=== PATIENT | female | born 1930 | race Caucasian/White ===

== ENCOUNTER 2016-09-21 08:42 | Inpatient (IN) | payer MEDICARE, BC ==
[2016-09-21] VITALS (7 sets, daily range): BP systolic 128–155; BP diastolic 76–101; PULSE 78–95; RESP 16–20; TEMP 97.4–97.7; O2SAT 94–99
[~2016-09-21 08:42] MED LIST: ASPI81 PO; ATEN1TAB74 PO; CENTTAB9 PO; CLON.1 PO; MAXZ PO
--- NOTE | 2016-09-21 08:56 | PD ---
HPI Chief Complaint: pt not eating or drinking Time Seen by Provider: 08:47 Travel History International Travel<30 days: No Contact w/Intl Traveler<30days: No Traveled to known affect area: No History of Present Illness HPI Patient presents via [facility] from [facility] dementia unit. Reports that the patient has refused to eat or drink for 3 days. long term has concerns of a UTI. Past medical history of hypertension and hypokalemia rhabdomyolysis and dementia. Patient is noncommunicative. PFSH Past Medical History Arthritis: Yes (NECK & BACK) Blood Disorders: No Heart Rhythm Problems: Yes Cancer: No Cardiovascular Problems: Yes High Cholesterol: No Chemotherapy: No Chest Pain: No Congestive Heart Failure: No Cerebrovascular Accident: No Diabetes: No Diminished Hearing: No Endocrine: Yes ("HIGH SUGAR BUT NOT DIABETIC" (?)) Genitourinary: No Headaches: Yes Hypertension: Yes Immune Disorder: No Musculoskeletal: Yes Neurologic: Yes Psychiatric: No Reproductive: No Respiratory: No Myocardial Infarction: No Radiation Therapy: No Sleep Apnea: No Past Surgical History Abdominal Surgery: No Endocrine Surgery: No Eye Surgery: Yes (EARLY CATARACT SURGERY) Gynecologic Surgery: Yes (HYSTERECTOMY) Hysterectomy: Yes Thoracic Surgery: No Other Surgery: Yes (VASCULAR TO LEFT LEG) Social History Alcohol Use: No Tobacco Use: No Substance Use: No Allergies-Medications (Allergen,Severity, Reaction): Coded Allergies: Penicillin (Verified Allergy, Mild, 09/21/16) Uncoded Allergies: MOLD CULTURES (Allergy, Mild, 09/29/07) Reported Meds & Prescriptions Reported Meds & Active Scripts Active Reported Preservision Areds (Multiple Vitamins W/ Minerals) 1 Tab 1 Tab PO BID Gabapentin 300 Mg Cap 300 Mg PO TID Montelukast (Montelukast Sodium) 10 Mg Tab 10 Mg PO DAILY Diphenhydramine (Diphenhydramine HCl) 25 Mg Cap 25 Mg PO HS Multivitamin Adults (Multiple Vitamins W/ Minerals) 1 Tab 1 Tab PO DAILY Ferrous Sulfate 325 Mg Tab 325 Mg PO TID Calcium 500 +D (Calcium Carbonate-Cholecalciferol) 500-400 Mg-Unit Tab 1 Tab PO BID Aspirin 81 Mg Chew 81 Mg CHEW DAILY Fluticasone Nasal [place] 50 Mcg/Act Naspr 50 Mcg EACH NARE DAILY 50 mcg/spray Hydroxychloroquine (Hydroxychloroquine Sulfate) 200 Mg Tab 200 Mg PO DAILY Takw with food Clonidine (Clonidine HCl) 0.1 Mg Tab 0.1 Mg PO BID K-Tab (Potassium Chloride) 20 Meq Tab 20 Meq PO BID Donepezil 5 Mg Tab 5 Mg PO HS Lisinopril 40 Mg Tab 40 Mg PO DAILY Furosemide 40 Mg Tab 40 Mg PO BID Review of Systems ROS Limitations: Poor Historian General / Constitutional: No: Fever Eyes: No: Visual changes HENT: No: Headaches Cardiovascular: No: Chest Pain or Discomfort Respiratory: No: Shortness of Breath Gastrointestinal: No: Abdominal Pain Genitourinary: No: Dysuria Musculoskeletal: No: Pain Skin: No Rash Neurologic: No: Weakness Psychiatric: No: Depression Endocrine: No: Polydipsia Hematologic/Lymphatic: No: Easy Bruising Physical Exam Narrative GENERAL: Poorly nourished noncommunicative. SKIN: Warm and dry. HEAD: Normocephalic. Temporal wasting noted, oral mucosa appears moist EYES: No scleral icterus. No injection or drainage. NECK: Supple, trachea midline. No JVD or lymphadenopathy. CARDIOVASCULAR: Regular rate and rhythm without murmurs, gallops, or rubs. RESPIRATORY: Breath sounds equal bilaterally. No accessory muscle use. GASTROINTESTINAL: Abdomen soft, patient moans with palpation, nondistended. MUSCULOSKELETAL: No cyanosis, or edema. BACK: Nontender without obvious deformity. No CVA tenderness. Data Data Last Documented VS Vital Signs Date Time Temp Pulse Resp B/P Pulse Ox O2 Delivery O2 Flow Rate FiO2 09/21/16 09:04 95 16 09/21/16 09:01 97.7 155/88 98 Orders Complete Blood Count With Diff (09/21/16 08:48) Basic Metabolic Panel (Bmp) (09/21/16 08:48) Urinalysis - C+S If Indicated (09/21/16 08:48) Sodium Chlorid 0.9% 500 Ml Inj (Ns 500 M (09/21/16 09:00) Ondansetron Inj (Zofran Inj) (09/21/16 09:15) Iv Access Insert/Monitor (09/21/16 09:14) Chest, Single Ap (09/21/16 ) Admit To Inpatient (09/21/16 ) Vital Signs (Adult) Q4H (09/21/16 10:28) Activity Oob With Assistance (09/21/16 10:28) Diet Regular Basic (09/21/16 Lunch) Sodium Chlor 0.9% 1000 Ml Inj (Ns 1000 M (09/21/16 10:28) Sodium Chloride 0.9% Flush (Ns Flush) (09/21/16 10:30) Sodium Chloride 0.9% Flush (Ns Flush) (09/21/16 21:00) Acetaminophen (Tylenol) (09/21/16 10:30) Ondansetron Inj (Zofran Inj) (09/21/16 10:30) Docusate Sodium (Colace) (09/21/16 10:30) Magnesium Hydroxide Liq (Milk Of Magnesi (09/21/16 10:30) Basic Metabolic Panel (Bmp) (09/22/16 06:00) Complete Blood Count With Diff (09/22/16 06:00) Pt Request For Service (09/21/16 10:28) St Request For Service (09/21/16 10:28) Case Management Consult (09/21/16 10:28) Scd Bilateral/Knee High ROSEY.BID (09/21/16 10:28) Naloxone Inj (Narcan Inj) (09/21/16 10:30) Inpatient Certification (09/21/16 ) Labs Laboratory Tests Test 09/21/16 09/21/16 08:46 09:07 Urine Collection Type CATH Urine Color YELLOW Urine Turbidity SLIGHT Urine pH 5.5 Urine Specific [place] 1.016 Urine Protein 30 mg/dL Urine Glucose (UA) NEG mg/dL Urine Ketones 15 mg/dL Urine Occult Blood NEG Urine Nitrite NEG Urine Bilirubin NEG Urine Leukocyte Esterase NEG Urine Squamous Epithelial 0-5 /hpf Cells Urine Transitional Epithelial 0-5 /hpf Cells Urine Amorphous Sediment MOD Urine Hyaline Casts 0-2 /lpf Microscopic Urinalysis Comment CATH-CULT NOT IND Urine Collection Time 0845 White Blood Count 19.2 TH/MM3 Red Blood Count 4.70 MIL/MM3 Hemoglobin 14.9 GM/DL Hematocrit 43.9 % Mean Corpuscular Volume 93.4 FL Mean Corpuscular Hemoglobin 31.6 PG Mean Corpuscular Hemoglobin 33.8 % Concent Red Cell Distribution Width 12.8 % Platelet Count 325 TH/MM3 Mean Platelet Volume 9.1 FL Neutrophils (%) (Auto) % Lymphocytes (%) (Auto) % Monocytes (%) (Auto) % Eosinophils (%) (Auto) % Basophils (%) (Auto) % Neutrophils # (Auto) TH/MM3 Lymphocytes # (Auto) TH/MM3 Monocytes # (Auto) TH/MM3 Eosinophils # (Auto) TH/MM3 Basophils # (Auto) TH/MM3 CBC Comment AUTO DIFF Differential Total Cells 100 Counted Neutrophils % (Manual) 89 % Band Neutrophils % 4 % Lymphocytes % 4 % Monocytes % 3 % Neutrophils # (Manual) 17.9 TH/MM3 Differential Comment FINAL DIFF MANUAL Platelet Estimate NORMAL Platelet Morphology Comment NORMAL Red Cell Morphology Comment NORMAL Sodium Level 146 MEQ/L Potassium Level 5.1 MEQ/L Chloride Level 108 MEQ/L Carbon Dioxide Level 23.4 MEQ/L Anion Gap 15 MEQ/L Blood Urea Nitrogen 58 MG/DL Creatinine 2.80 MG/DL Estimat Glomerular Filtration 16 ML/MIN Rate Random Glucose 118 MG/DL Calcium Level 9.4 MG/DL MDM Medical Decision Making Medical Screen Exam Complete: Yes Emergency Medical Condition: Yes Differential Diagnosis Failure to thrive, progressive dementia, UTI Narrative Course Assessment and plan discussed with her healthcare surrogate. She is aware that the patient has refused to eat or drink for 3 days. She is amiable to admission for rehydration and observation of acute renal failure however she is aware that we will keep her DNR and will not be forcing her to eat. CBC revealed a leukocytosis, BMP revealed acute renal failure. Last 72 hours Impressions Chest X-Ray 09/21/16 0000 Signed Impressions: Service Date/Time: Wednesday, September 21, 2016 09:57 - CONCLUSION: No acute disease. Cardiomegaly. Yariel West MD Physician Communication Physician Communication Spoke with Dr Carson who is in agreement will admit. Diagnosis Primary Impression: ARF (acute renal failure) Qualified Code: N17.9 - Acute renal failure, unspecified acute renal failure type Additional Impression: Leucocytosis Qualified Code: D72.829 - Leukocytosis, unspecified type Francis Honeycutt MD Sep 21, 2016 08:56
[2016-09-21] MEDS ORDERED: SODIUM CHLORID 0.9% 500 ML INJ 500 ML IV ONE (09:00)
[2016-09-21 09:05] LABS: BLOOD, URINE NEG (NEG); GLUCOSE,URINE NEG (NEG); KETONE, URINE 15 mg/dL (NEG); NITRITE,URINE NEG (NEG); PH, URINE 5.5 (5.0-8.5)
[2016-09-21 09:06] LABS: METHOD OF COLLECTION CATH; URINE COLOR YELLOW (YELLW/STRAW)
[2016-09-21 09:10] LABS: COMMENT (UR) CATH-CULT NOT IND; COMMENT2 (UR) MUCOUS PRESENT; CULTURE IF INDICATED CATH CULTURE NOT IND; HYALINE CAST, URINE 0-2 /lpf (RARE); SQUAMOUS EPITHELIAL CELL URINE 0-5 /hpf (0-5); TRANSITIONAL EPI CELLS, URINE 0-5 /hpf
[2016-09-21] MEDS ORDERED: ONDANSETRON HCL 4 MG/2 ML VIAL IV PUSH ONE (09:15)
[2016-09-21 09:20] LABS: HEMATOCRIT 43.9 % (35.0-46.0); MEAN CELL VOLUME 93.4 FL (80.0-100.0); MEAN CORPUSCULAR HEMOGLOBIN 31.6 PG (27.0-34.0); MEAN CORPUSCULAR HGB CONC 33.8 % (32.0-36.0); PLATELET COUNT 325 TH/MM3 (150-450); RED CELL DISTRIBUTION WIDTH 12.8 % (11.6-17.2); WHITE BLOOD COUNT 19.2 TH/MM3 (4.0-11.0)
[2016-09-21 09:28] LABS: HEMO FLAGS AUTO DIFF
[2016-09-21] MEDS ORDERED: DONE5TAB7 PO (09:37)
[2016-09-21] MEDS ORDERED: CALC1TAB12 PO (09:37)
[2016-09-21] MEDS ORDERED: MULT1TAB84 PO (09:37)
[2016-09-21] MEDS ORDERED: DIPH25CA PO (09:37)
[2016-09-21] MEDS ORDERED: HYDR200T3 PO (09:37)
[2016-09-21] MEDS ORDERED: GABA300C5 PO (09:37)
[2016-09-21] MEDS ORDERED: MONT10TA4 PO (09:37)
[2016-09-21] MEDS ORDERED: FURO40TA PO (09:37)
[2016-09-21] MEDS ORDERED: POTA1TAB4 PO (09:37)
[2016-09-21] MEDS ORDERED: FERR325T PO (09:37)
[2016-09-21] MEDS ORDERED: LISI40TA PO (09:37)
[2016-09-21] MEDS ORDERED: CLON0.1T PO (09:37)
[2016-09-21] MEDS ORDERED: OCUVTAB4 PO (09:37)
[2016-09-21] MEDS ORDERED: ASPI81CH CHEW (09:37)
[2016-09-21] MEDS ORDERED: FLUT50SP EACH NARE (09:37)
[2016-09-21 09:46] LABS: BANDS 4 % (0-6); NEUTROPHIL # MANUAL DIFF 17.9 TH/MM3 (1.8-7.7); PLATELET ESTIMATE SMEAR NORMAL (NORMAL); PLATELET MORPHOLOGY NORMAL (NORMAL); POLYS (SEG NEUTROPHILS) 89 % (16-70); SCAN/DIFF FINAL DIFF MANUAL; WBC DIFF SAMPLE 100
[2016-09-21 09:50] LABS: BICARBONATE 23.4 MEQ/L (21.0-32.0)
[2016-09-21 09:57] LABS: POTASSIUM 5.1 MEQ/L (3.5-5.1)
--- NOTE | 2016-09-21 10:05 | RADHPO ---
EXAM DATE/TIME: 09/21/2016 09:57 [place] COMPARISON: No previous studies available for comparison. INDICATIONS : Chest pain. MEDICAL HISTORY : None. SURGICAL HISTORY : None. ENCOUNTER: Initial ACUITY: 1 day PAIN SCORE: Non-responsive. LOCATION: Bilateral chest FINDINGS: A single view of the chest demonstrates the lungs to be symmetrically aerated without evidence of mas s, infiltrate or effusion. Cardiomegaly. The cardiomediastinal contours are unremarkable. Osseous st ructures are intact. CONCLUSION: No acute disease. Cardiomegaly. Yariel West MD on September 21, 2016 at 10:03 Board Certified Radiologist. This report was verified electronically.
[2016-09-21] MEDS ORDERED: SODIUM CHLORIDE 0.9% FLUSH 5 ML FLUSH FLUSH PRN (10:30)
[2016-09-21] MEDS ORDERED: ACETAMINOPHEN 325 MG TAB PO PRN ×2 (10:30→10:45)
[2016-09-21] MEDS ORDERED: ONDANSETRON HCL 4 MG/2 ML VIAL IVP PRN (10:30)
[2016-09-21] MEDS ORDERED: MAGNESIUM HYDROXIDE SUSP 30 ML CUP PO PRN (10:30)
[2016-09-21] MEDS ORDERED: NALOXONE HCL 0.4 MG/ML AMP IV PRN (10:30)
[2016-09-21] MEDS: SODIUM CHLOR 0.9% 1000 ML INJ 1,000 ML IV SCH ×2 (10:45→20:19)
[2016-09-21] MEDS ORDERED: SODIUM CHLORIDE 0.9% FLUSH 5 ML FLUSH IVF PRN (10:45)
[2016-09-21] MEDS: DOCUSATE SODIUM 100 MG CAP PO SCH ×2 (10:45→20:20)
--- NOTE | 2016-09-21 11:50 | HHI.HP ---
[facility] Primary Care Physician Unknown Admission Diagnosis acute renal failure, leukocytosis Diagnoses: (1) ARF (acute renal failure) (2) Leucocytosis (3) Dementia (4) Moderate malnutrition (5) FTT (failure to thrive) in adult Travel History International Travel<30 Days: No Contact w/Intl Traveler <30 Da: No Traveled to Known Affected Are: No History of Present Illness This is an 86-year-old female with past medical history of end-stage dementia and hypertension who was brought in from a local nursing facility dementia unit for not eating or drinking anything for 3 days. They were concerned that she might have a UTI at the retirement. The patient has dementia and is able to tell me only her name therefore history is limited. However the patient denies pain, difficulty swallowing, fever, chills. She states she is comfortable. Further review of systems is not obtainable/ reliable due to her dementia. The emergency department she was found to be in acute renal failure. She apparently is a DO NOT RESUSCITATE. Her health care surrogate was contacted by the ER physician and agreed with admission for IV fluid hydration but does not want aggressive measures apart from that. Past Family Social History Past Medical History End-stage dementia Hypertension SLE History pulmonary nodule Reported Medications Allergies Coded Allergies Type Severity Reaction Last Updated Verified Penicillin Allergy Mild 09/21/16 Yes Uncoded Allergies Type Severity Reaction Last Updated Verified MOLD CULTURES Allergy Mild 09/29/07 Active Scripts Medications Dose Route/Sig Days Date Category Dose Instructions Preservision Areds (Multiple Vitamins W/ Minerals) 1 Tab 1 Tab PO BID 09/21/16 Reported Gabapentin 300 Mg Cap 300 Mg PO TID 09/21/16 Reported Montelukast (Montelukast Sodium) 10 Mg Tab 10 Mg PO DAILY 09/21/16 Reported Diphenhydramine (Diphenhydramine HCl) 25 Mg Cap 25 Mg PO HS 09/21/16 Reported Multivitamin Adults (Multiple Vitamins W/ Minerals) 1 Tab 1 Tab PO DAILY 09/21/16 Reported Ferrous Sulfate 325 Mg Tab 325 Mg PO TID 09/21/16 Reported Calcium 500 +D (Calcium Carbonate-Cholecalciferol) 500-400 Mg-Unit Tab 1 Tab PO BID 09/21/16 Reported Aspirin 81 Mg Chew 81 Mg CHEW DAILY 09/21/16 Reported Fluticasone Nasal [place] 50 Mcg/Act Naspr 50 Mcg EACH NARE DAILY 09/21/16 Reported 50 mcg/spray Hydroxychloroquine (Hydroxychloroquine Sulfate) 200 Mg Tab 200 Mg PO DAILY 09/21/16 Reported Takw with food Clonidine (Clonidine HCl) 0.1 Mg Tab 0.1 Mg PO BID 09/21/16 Reported K-Tab (Potassium Chloride) 20 Meq Tab 20 Meq PO BID 09/21/16 Reported Donepezil 5 Mg Tab 5 Mg PO HS 09/21/16 Reported Lisinopril 40 Mg Tab 40 Mg PO DAILY 09/21/16 Reported Furosemide 40 Mg Tab 40 Mg PO BID 09/21/16 Reported Allergies: Coded Allergies: Penicillin (Verified Allergy, Mild, 09/21/16) Uncoded Allergies: MOLD CULTURES (Allergy, Mild, 09/29/07) Family History Not obtainable at this time Social History Not obtainable at this time Physical Exam Vital Signs Vital Signs Date Time Temp Pulse Resp B/P Pulse Ox O2 Delivery O2 Flow Rate FiO2 09/21/16 10:50 91 18 138/95 95 Room Air 09/21/16 09:04 95 16 09/21/16 09:01 97.7 95 16 155/88 98 Physical Exam GENERAL: Well-nourished, well-developed but severely demented elderly female SKIN: Warm and dry. HEAD: Normocephalic. EYES: No scleral icterus. No injection or drainage. Oropharynx: She has extremely dry mucous membranes. NECK: Supple, trachea midline. No JVD or lymphadenopathy. CARDIOVASCULAR: Regular rate and rhythm without murmurs, gallops, or rubs. RESPIRATORY: Breath sounds equal bilaterally. No accessory muscle use. GASTROINTESTINAL: Abdomen soft, non-tender, nondistended. EXTREMITIES: No cyanosis, or edema. NEUROLOGICAL: Awake, alert, and oriented to self only. Follows commands and moves all 4 extremities. Laboratory Laboratory Tests Test 09/21/16 09/21/16 08:46 09:07 Urine Collection Type CATH Urine Color YELLOW Urine Turbidity SLIGHT Urine pH 5.5 Urine Specific [place] 1.016 Urine Protein 30 Urine Glucose (UA) NEG Urine Ketones 15 Urine Occult Blood NEG Urine Nitrite NEG Urine Bilirubin NEG Urine Leukocyte Esterase NEG Urine Squamous Epithelial 0-5 Cells Urine Transitional Epithelial 0-5 Cells Urine Amorphous Sediment MOD Urine Hyaline Casts 0-2 Microscopic Urinalysis Comment CATH-CULT NOT IND Urine Collection Time 0845 White Blood Count 19.2 Red Blood Count 4.70 Hemoglobin 14.9 Hematocrit 43.9 Mean Corpuscular Volume 93.4 Mean Corpuscular Hemoglobin 31.6 Mean Corpuscular Hemoglobin 33.8 Concent Red Cell Distribution Width 12.8 Platelet Count 325 Mean Platelet Volume 9.1 Neutrophils (%) (Auto) Lymphocytes (%) (Auto) Monocytes (%) (Auto) Eosinophils (%) (Auto) Basophils (%) (Auto) Neutrophils # (Auto) Lymphocytes # (Auto) Monocytes # (Auto) Eosinophils # (Auto) Basophils # (Auto) CBC Comment AUTO DIFF Differential Total Cells 100 Counted Neutrophils % (Manual) 89 Band Neutrophils % 4 Lymphocytes % 4 Monocytes % 3 Neutrophils # (Manual) 17.9 Differential Comment FINAL DIFF MANUAL Platelet Estimate NORMAL Platelet Morphology Comment NORMAL Red Cell Morphology Comment NORMAL Sodium Level 146 Potassium Level 5.1 Chloride Level 108 Carbon Dioxide Level 23.4 Anion Gap 15 Blood Urea Nitrogen 58 Creatinine 2.80 Estimat Glomerular Filtration 16 Rate Random Glucose 118 Calcium Level 9.4 Result Diagram: 09/21/16 0907 09/21/16 0907 Imaging Last Impressions Chest X-Ray 09/21/16 0000 Signed Impressions: Service Date/Time: Wednesday, September 21, 2016 09:57 - CONCLUSION: No acute disease. Cardiomegaly. Yariel West MD Assessment and Plan Assessment and Plan -Acute renal failure due to dehydration/no by mouth intake. This is likely due to her end-stage dementia. She has no UTI, fever or infiltrate on chest x-ray. She does have a leukocytosis which is likely in part due to hemoconcentration. We will admit her and treat with IV fluid rehydration. She is a DO NOT RESUSCITATE. Hopefully her intake will improve when she gets more rehydrated. If not then hospice will be a reasonable option for her. -Hypertension - will hold the lisinopril secondary to the acute renal failure and place her on Procardia instead. Continue her home clonidine. -End-stage dementia - will check a speech swallow evaluation. Continue Aricept. -Leukocytosis. We'll repeat CBC in the morning. No evidence of underlying infection at this time. -SLE - continue Plaquenil. -Moderate malnutrition. Add ensure. Check ST swallow evaluation. -DVT prophylaxis with SCDs. Problem Qualifiers (1) ARF (acute renal failure): Qualified Code: N17.9 - Acute renal failure, unspecified acute renal failure type (2) Leucocytosis: Qualified Code: D72.829 - Leukocytosis, unspecified type Ami Carson MD Sep 21, 2016 11:50
[2016-09-21] MEDS ORDERED: cloNIDine HCL 0.1 MG TAB PO PRN (12:00)
[2016-09-21] MEDS: SODIUM CHLORIDE 0.9% FLUSH 5 ML FLUSH FLUSH SCH (20:19)
[2016-09-21] MEDS: cloNIDine HCL 0.1 MG TAB PO SCH (20:20)
[2016-09-21] MEDS: DONEPEZIL HCL 5 MG TAB PO SCH (20:20)
[2016-09-21] MEDS: NIFEdipine 60 MG SUSTAINED RELEASE TAB PO SCH (20:20)
[2016-09-21] MEDS ORDERED: SODIUM CHLORIDE 0.9% FLUSH 5 ML FLUSH IVF SCH (21:00)
[2016-09-22] VITALS (8 sets, daily range): BP systolic 80–131; BP diastolic 52–73; PULSE 78–91; RESP 16–22; TEMP 96.1–97.7; O2SAT 92–97
[2016-09-22 06:28] LABS: AUTOMATED NEUTROPHIL # 8.9 TH/MM3 (1.8-7.7); BASOPHIL % 0.3 % (0.0-2.0); EOSINOPHIL % 0.1 % (0.0-4.0); HEMATOCRIT 35.2 % (35.0-46.0); HEMO FLAGS DIFF FINAL; LYMPH % 10.7 % (9.0-44.0); LYMPHOCYTE # 1.1 TH/MM3 (1.0-4.8); MEAN CELL VOLUME 93.8 FL (80.0-100.0); MEAN CORPUSCULAR HEMOGLOBIN 30.8 PG (27.0-34.0); MEAN CORPUSCULAR HGB CONC 32.8 % (32.0-36.0); MONO % 6.9 % (0.0-8.0); PLATELET COUNT 262 TH/MM3 (150-450); RED BLOOD COUNT 3.75 MIL/MM3 (4.00-5.30); RED CELL DISTRIBUTION WIDTH 13.4 % (11.6-17.2); WHITE BLOOD COUNT 10.7 TH/MM3 (4.0-11.0)
[2016-09-22] MEDS: SODIUM CHLOR 0.9% 1000 ML INJ 1,000 ML IV SCH (06:35)
[2016-09-22 06:53] LABS: BICARBONATE 23.1 MEQ/L (21.0-32.0)
--- NOTE | 2016-09-22 07:35 | HHI.PR ---
Subjective Remarks Patient seen and examined today with Dr. Carson. Patient is awake lying in bed. She knows that she is in the hospital, however she thinks she is in [facility]. Laboratory studies are improving with IV hydration. Objective Vitals Vital Signs Date Time Temp Pulse Resp B/P Pulse Ox O2 Delivery O2 Flow Rate FiO2 09/22/16 04:00 97.7 85 16 131/70 94 09/22/16 00:00 97.2 79 20 89/56 92 09/21/16 20:00 97.6 85 20 149/101 95 09/21/16 19:29 99 21 09/21/16 16:00 97.4 81 18 128/76 96 09/21/16 13:49 97 21 09/21/16 13:03 97.7 78 17 132/84 94 09/21/16 10:50 91 18 138/95 95 Room Air 09/21/16 09:04 95 16 09/21/16 09:01 97.7 95 16 155/88 98 I/O 09/21/16 09/21/16 09/21/16 09/22/16 09/22/16 09/22/16 07:00 15:00 23:00 07:00 15:00 23:00 Intake Total 600 ml 1207 ml 788 ml Output Total 30 ml Balance 570 ml 1207 ml 788 ml Intake Oral 30 ml IV Total 600 ml 1177 ml 788 ml Output Urine Total 30 ml Bladder Scan Volume Amount 431 ml # Voids 0 # Bowel Movements 0 Result Diagram: 09/22/16 0510 09/22/16 0510 Objective Remarks GENERAL: Well-developed, well-nourished, in no acute distress. alert and orientated to person only HEENT: Head is normocephalic without any lesions or masses noted. Facial features are symmetric. Eyes: Extraocular muscles are intact. Conjunctivae were clear. NECK: Supple without any masses. Trachea midline no deviation. No JVD, CARDIAC: Regular rhythm, regular rate. S1/S2 are heard. 3/6 blowing ejection murmur, no gallops or rubs. LUNGS: Clear to auscultation bilaterally. No wheeze, rhonchi or rales. No use of accessory muscles on inspiration or expiration. ABDOMEN: Soft, nontender. Nondistended. Bowel sounds heard in all 4 quadrants. No organomegaly or masses. Negative rebound, negative guarding EXTREMITIES: No edema, pulses are equal bilaterally. No cyanosis or clubbing NEUROLOGY: Mood and affect appear appropriate. Cranial nerves II through XII grossly intact. Moving all extremities, speech is clear Urinary Catheter: Yes [place] insert reason: Measure Accurate Output Vascular Central Line Catheter: No A/P Assessment and Plan -Acute renal failure due to dehydration/no by mouth intake, improving with IV hydration. This is likely due to her end-stage dementia. She has no UTI, fever or infiltrate on chest x-ray. She does have a leukocytosis which resolved after hydration. Continue IV fluid rehydration. She is a DO NOT RESUSCITATE. Hopefully her intake will improve when she gets more rehydrated. If not then hospice will be a reasonable option for her. -Hypertension - will hold the lisinopril secondary to the acute renal failure and place her on Procardia instead. Continue her home clonidine. -End-stage dementia -awaiting speech swallow evaluation. Continue Aricept. -Leukocytosis. Resolved after hydration. No evidence of underlying infection at this time. -Hypernatremia. Patient has received almost 3 L of normal saline with worsening. Will change IV fluids to one half normal saline, continue monitor sodium level -Urinary retention. Patient not urinating at this time. Bladder scan indicates 460 mL's. Will insert [place] catheter for possible obstruction to monitor accurate input and output -SLE. Continue Plaquenil. -Moderate malnutrition. Continue ensure. Awaiting ST swallow evaluation. -DVT prophylaxis with SCDs. Written by Marcell Mtz PA-C, acting as scribe for Dr. Carson on 09/22/16 at 1135. The documentation accurately reflects the work and decisions performed face-to- face by Dr. Carson on 09/22/16 at 1135. Discharge Planning Discharge planning 2448 hours depending on patient's clinical response. Possible need for hospice or rehabilitation placement Marcell Mtz Sep 22, 2016 07:34
[2016-09-22] MEDS: 1/2 NS + KCL 20 MEQ INJ 1,000 ML IV SCH ×2 (09:47→21:32)
[2016-09-22] MEDS: SODIUM CHLORIDE 0.9% FLUSH 5 ML FLUSH FLUSH SCH ×2 (09:48→21:27)
[2016-09-22] MEDS: HYDROXYCHLOROQUINE SULFATE 200 MG TAB PO SCH (09:48)
[2016-09-22] MEDS: DOCUSATE SODIUM 100 MG CAP PO SCH ×2 (09:48→21:27)
[2016-09-22] MEDS: cloNIDine HCL 0.1 MG TAB PO SCH ×2 (09:48→21:27)
[2016-09-22] MEDS: NIFEdipine 60 MG SUSTAINED RELEASE TAB PO SCH ×2 (09:49→21:27)
[2016-09-22] MEDS: ASPIRIN 81 MG CHEW TAB CHEW SCH (09:49)
[2016-09-22] MEDS: MULTIVITAMINS/MINERALS THERAPEUTIC TAB PO SCH (09:49)
[2016-09-22] MEDS: DONEPEZIL HCL 5 MG TAB PO SCH (21:27)
[2016-09-23] VITALS: BP 90/48; PULSE 80; RESP 16; TEMP 98; O2SAT 92
[2016-09-23 04:00] VITALS: BP 104/56; PULSE 80; RESP 16; TEMP 96.4; O2SAT 97
[2016-09-23 06:46] LABS: AUTOMATED NEUTROPHIL # 6.6 TH/MM3 (1.8-7.7); BASOPHIL % 0.2 % (0.0-2.0); EOSINOPHIL # 0.2 TH/MM3 (0-0.4); EOSINOPHIL % 1.8 % (0.0-4.0); HEMATOCRIT 32.2 % (35.0-46.0); HEMO FLAGS DIFF FINAL; LYMPH % 14.4 % (9.0-44.0); LYMPHOCYTE # 1.2 TH/MM3 (1.0-4.8); MEAN CELL VOLUME 93.2 FL (80.0-100.0); MEAN CORPUSCULAR HEMOGLOBIN 31.3 PG (27.0-34.0); MEAN CORPUSCULAR HGB CONC 33.6 % (32.0-36.0); MONO % 6.9 % (0.0-8.0); NEUT % 76.7 % (16.0-70.0); PLATELET COUNT 245 TH/MM3 (150-450); RED BLOOD COUNT 3.46 MIL/MM3 (4.00-5.30); WHITE BLOOD COUNT 8.6 TH/MM3 (4.0-11.0)
[2016-09-23 07:19] LABS: BICARBONATE 21.3 MEQ/L (21.0-32.0); MAGNESIUM 2.3 MG/DL (1.5-2.5)
[2016-09-23] MEDS: MULTIVITAMINS/MINERALS THERAPEUTIC TAB PO SCH (07:47)
[2016-09-23] MEDS: DOCUSATE SODIUM 100 MG CAP PO SCH (07:47)
[2016-09-23] MEDS: HYDROXYCHLOROQUINE SULFATE 200 MG TAB PO SCH (07:47)
[2016-09-23] MEDS: NIFEdipine 60 MG SUSTAINED RELEASE TAB PO SCH (07:47)
[2016-09-23] MEDS: cloNIDine HCL 0.1 MG TAB PO SCH (07:47)
[2016-09-23] MEDS: ASPIRIN 81 MG CHEW TAB CHEW SCH (07:47)
[2016-09-23] MEDS: 1/2 NS + KCL 20 MEQ INJ 1,000 ML IV SCH (07:48)
[2016-09-23] MEDS: SODIUM CHLORIDE 0.9% FLUSH 5 ML FLUSH FLUSH SCH (07:48)
[2016-09-23 08:09] VITALS: BP 140/70; PULSE 79; RESP 18; TEMP 97; O2SAT 94
--- NOTE | 2016-09-23 12:12 | HHI.PR ---
Subjective Remarks Renal function has improved and the patient is alert and awake, however the patient is still not eating despite prompting her by the CORRECTIONAL COUNSELOR. Patient denies pain. Objective Vitals Vital Signs Date Time Temp Pulse Resp B/P Pulse Ox O2 Delivery O2 Flow Rate FiO2 09/23/16 08:09 97.0 79 18 140/70 94 09/23/16 04:00 96.4 80 16 104/56 97 09/23/16 00:00 98.0 80 16 90/48 92 09/22/16 19:40 96.5 82 22 115/63 92 09/22/16 19:16 95 09/22/16 16:20 97.6 91 18 80/52 97 09/22/16 12:41 96.7 78 17 108/61 95 I/O 09/22/16 09/22/16 09/22/16 09/23/16 09/23/16 09/23/16 07:00 15:00 23:00 07:00 15:00 23:00 Intake Total 788 ml 300 ml 400 ml 1000 ml Output Total 350 ml Balance 788 ml 300 ml 50 ml 1000 ml Intake Oral 300 ml 400 ml IV Total 788 ml 1000 ml Output Urine Total 350 ml Bladder Scan Volume Amount 431 ml # Bowel Movements 0 Result Diagram: 09/23/16 0505 09/23/16 0505 Objective Remarks GENERAL: Well-nourished, well-developed elderly female patient. SKIN: Warm and dry. HEAD: Normocephalic. EYES: No scleral icterus. No injection or drainage. NECK: Supple, trachea midline. No JVD or lymphadenopathy. CARDIOVASCULAR: Regular rate and rhythm without murmurs, gallops, or rubs. RESPIRATORY: Breath sounds equal bilaterally. No accessory muscle use. GASTROINTESTINAL: Abdomen soft, non-tender, nondistended. EXTREMITIES: No cyanosis, or edema. NEUROLOGICAL: Awake, alert, and oriented to self only. A/P Problem List: (1) ARF (acute renal failure) ICD Code: N17.9 Status: Acute (2) Leucocytosis ICD Code: D72.829 Status: Acute (3) Dementia ICD Code: F03.90 Status: Acute (4) Moderate malnutrition ICD Code: E44.0 Status: Acute (5) FTT (failure to thrive) in adult ICD Code: R62.7 Status: Acute Assessment and Plan -Acute renal failure due to dehydration/no by mouth intake, improving with IV hydration. This is likely due to her end-stage dementia. She has no UTI, fever or infiltrate on chest x-ray. She does have a leukocytosis which resolved after hydration. Continue IV fluid rehydration. She is a DO NOT RESUSCITATE. Although her renal function has now improved almost back to baseline, she continues to have poor by mouth intake. She is a hospice candidate to which her granddaughter is agreeable. She will be discharged back to the long-term dementia unit with hospice. -Hypertension -we DC'd the lisinopril due to acute renal failure and placed her on Procardia instead. Continue her home clonidine. -End-stage dementia - Continue Aricept. -Leukocytosis. Resolved after hydration. No evidence of underlying infection at this time. -Hypernatremia. Resolved. -Urinary retention. Continue [place]. -SLE. Continue Plaquenil. -Moderate malnutrition. Continue ensure. -DVT prophylaxis with SCDs. Problem Qualifiers (1) ARF (acute renal failure): Qualified Code: N17.9 - Acute renal failure, unspecified acute renal failure type (2) Leucocytosis: Qualified Code: D72.829 - Leukocytosis, unspecified type Ami Carson MD Sep 23, 2016 12:12
--- NOTE | 2016-09-23 12:14 | HHI.DS ---
Discharge Summary Admission Date Sep 21, 2016 at 10:37 Discharge Date: Sep 23, 2016 Admitting Diagnosis acute renal failure, leukocytosis (1) ARF (acute renal failure) ICD Code: N17.9 (2) Leucocytosis ICD Code: D72.829 (3) Dementia ICD Code: F03.90 (4) Moderate malnutrition ICD Code: E44.0 (5) FTT (failure to thrive) in adult ICD Code: R62.7 Procedures None Brief History - From Admission This is an 86-year-old female with past medical history of end-stage dementia and hypertension who was brought in from a local nursing facility dementia unit for not eating or drinking anything for 3 days. They were concerned that she might have a UTI at the long-term. The patient has dementia and is able to tell me only her name therefore history is limited. However the patient denies pain, difficulty swallowing, fever, chills. She states she is comfortable. Further review of systems is not obtainable/ reliable due to her dementia. The emergency department she was found to be in acute renal failure. She apparently is a DO NOT RESUSCITATE. Her health care surrogate was contacted by the ER physician and agreed with admission for IV fluid hydration but does not want aggressive measures apart from that. CBC/BMP: 09/23/16 0505 09/23/16 0505 Significant Findings Laboratory Tests Test 09/21/16 09/21/16 09/22/16 09/23/16 08:46 09:07 05:10 05:05 Urine Protein 30 mg/dL (NEG-TRACE) Urine Ketones 15 mg/dL (NEG) White Blood Count 19.2 TH/MM3 (4.0-11.0) Neutrophils % (Manual) 89 % (16-70) Lymphocytes % 4 % (9-44) Neutrophils # (Manual) 17.9 TH/MM3 (1.8-7.7) Sodium Level 146 MEQ/L 151 MEQ/L 147 MEQ/L (136-145) (136-145) (136-145) Chloride Level 108 MEQ/L 117 MEQ/L 116 MEQ/L (98-107) (98-107) (98-107) Blood Urea Nitrogen 58 MG/DL (7-18) 53 MG/DL (7-18) 36 MG/DL (7-18) Creatinine 2.80 MG/DL 1.90 MG/DL 1.30 MG/DL (0.50-1.00) (0.50-1.00) (0.50-1.00) Estimat Glomerular Filtration 16 ML/MIN (>89) 25 ML/MIN (>89) 39 ML/MIN (>89) Rate Random Glucose 118 MG/DL (74-106) Red Blood Count 3.75 MIL/MM3 3.46 MIL/MM3 (4.00-5.30) (4.00-5.30) Neutrophils (%) (Auto) 82.0 % 76.7 % (16.0-70.0) (16.0-70.0) Neutrophils # (Auto) 8.9 TH/MM3 (1.8-7.7) Calcium Level 8.3 MG/DL 7.6 MG/DL (8.5-10.1) (8.5-10.1) Hemoglobin 10.8 GM/DL (11.6-15.3) Hematocrit 32.2 % (35.0-46.0) PE at Discharge GENERAL: Well-nourished, well-developed elderly female patient. SKIN: Warm and dry. HEAD: Normocephalic. EYES: No scleral icterus. No injection or drainage. NECK: Supple, trachea midline. No JVD or lymphadenopathy. CARDIOVASCULAR: Regular rate and rhythm without murmurs, gallops, or rubs. RESPIRATORY: Breath sounds equal bilaterally. No accessory muscle use. GASTROINTESTINAL: Abdomen soft, non-tender, nondistended. EXTREMITIES: No cyanosis, or edema. NEUROLOGICAL: Awake, alert, and oriented to self only. Hospital Course -Acute renal failure due to dehydration/no by mouth intake, improving with IV hydration. This is likely due to her end-stage dementia. She has no UTI, fever or infiltrate on chest x-ray. She does have a leukocytosis which resolved after hydration. Continue IV fluid rehydration. She is a DO NOT RESUSCITATE. Although her renal function has now improved almost back to baseline, she continues to have poor by mouth intake. She is a hospice candidate to which her granddaughter is agreeable. She will be discharged back to the long-term dementia unit with hospice. -Hypertension -blood pressure fluctuates quite widely. We DC'd the lisinopril due to acute renal failure and placed her on Procardia instead. Will DC Procardia and use clonidine as needed only. -End-stage dementia - Continue Aricept. -Leukocytosis. Resolved after hydration. No evidence of underlying infection at this time. -Hypernatremia. Resolved. -Urinary retention. Continue [place]. -SLE. Continue Plaquenil. -Moderate malnutrition. Continue ensure. Pt Condition on Discharge: Fair Discharge Disposition: ACLF/FCI Discharge Time: > 30 minutes Discharge Instructions DIET: Follow Instructions for: As Tolerated, No Restrictions Additional Diet Instructions: ensure TID Activities you can perform: Regular-No Restrictions Ami Carson MD Sep 23, 2016 12:14
[2016-09-23] MEDS ORDERED: CLON0.1T PO (12:16)
== END 2016-09-23 15:53 | disposition hospice, home (50) | DRG 683 ==
LOC: PHED 08:42 → UNDOADMIN 10:37 → PHEDA 10:37 → PH3A 11:52
PROVIDERS: ADMIT Family Medicine; ATTEND Family Medicine
PROC: 0T9B70Z Drainage of Bladder with Drainage Device, Via Natural or Artificial Opening (ICD-10-PCS; principal; 2016-09-22)
DX: N17.9 Acute kidney failure, unspecified (principal); E44.0 Moderate protein-calorie malnutrition; E87.0 Hyperosmolality and hypernatremia; F03.90 Unspecified dementia, unspecified severity, without behavioral disturbance, psychotic disturbance, mood disturbance, and anxiety; R62.7 Adult failure to thrive; M32.9 Systemic lupus erythematosus, unspecified; E86.0 Dehydration; D72.829 Elevated white blood cell count, unspecified; Z66 Do not resuscitate; I10 Essential (primary) hypertension; R33.9 Retention of urine, unspecified
CPT/HCPCS: 71010; 80048; 81001; 83735; 85007; 85025; 85027; 96360; J7030; J7040

== ENCOUNTER 2018-10-03 11:34 | Inpatient (IN) ==
[2018-10-03] MEDS ORDERED: Sod Chloride 0.9% Inj 1,000 ML IV.SIG ONE (11:47)
--- NOTE | 2018-10-03 11:52 | ED ---
HPI General Chief complaint: Nausea/Vomiting/Diarrhea Stated complaint: vomiting Time Seen by Provider: 10/03/18 11:45 Source: patient Limitations: other (Poor historian) History of Present Illness MD complaint: Reports vomiting and diarrhea Onset (ago): hour(s) Description of Vomiting: watery Description of Diarrhea: watery Associated Abdominal Pain: No Location of pain: Denies diffuse Quality: Denies cramping Pain Consistency: constant Relieving factors: none Exacerbating factors: none Context: Reports sick contacts (Assisted living facility) Associated symptoms: Reports denies other symptoms; Denies chest pain, fever/ chills and shortness of breath Related Data Home Medications Medication Instructions Recorded Confirmed acetaminophen 650 mg PO Q4H PRN 10/03/18 10/03/18 aspirin 81 mg PO DAILY 10/03/18 10/03/18 citalopram 10 mg PO DAILY 10/03/18 10/03/18 clonidine HCl 0.1 mg PO BID 10/03/18 10/03/18 clotrimazole 1 applic TOPICAL BID 10/03/18 10/03/18 diphenhydramine HCl 25 mg PO HS 10/03/18 10/03/18 donepezil 5 mg PO DAILY@1700 10/03/18 10/03/18 fluticasone 1 spray INTRANASAL DAILY 10/03/18 10/03/18 gabapentin 300 mg PO TID 10/03/18 10/03/18 hydroxychloroquine 200 mg PO DAILY 10/03/18 10/03/18 montelukast 10 mg PO DAILY 10/03/18 10/03/18 Allergies Allergy/AdvReac Type Severity Reaction Status Date / Time penicillin G Allergy Mild unknown Unverified 10/03/18 12:16 MOLD CULTURES Allergy Mild unknown Uncoded 10/03/18 12:16 Review of Systems ROS: all other systems reviewed are negative [facility] Medical History Medical History Dementia (Acute) Diabetes (Acute) Hypertension (Acute) Surgical history unknown (Acute) Social History Social History Substance History: No History of Abuse Smoking Status: Unknown if ever smoked How Often Do You Have a Drink Containing Alcohol: Never Recent Travel in [facility] within the Last 8 Weeks: No Recent Out of Country Travel within the Last 8 Weeks: No Exam Narrative Exam Narrative: Looks ill Normal cephalic/atraumatic EOMI, anicteric Dry lips NO JVD NON LABORED RESPIRATIONS REGULAR RHYTHM SOFT NON TENDER No rebound or guarding Bowel sounds PELVIS STABLE FROM EXTREMITIES LOWER EXTREMITY EDEMA FACIAL SYMMETRY Clear words, states name AAOX person place (history of dementia) Course Reevaluation(s) Reevaluation #1: No signs of acute airway compromise or surgical abdomen. Discussed with Nishant Currie MD to admit assume care Time: 16:19 Initial Documented Vital Signs Temperature 97.8 F 10/03/18 12:11 Pulse Rate 53 L 10/03/18 12:11 Respiratory Rate 18 10/03/18 12:11 Blood Pressure 140/73 10/03/18 12:11 Pulse Oximetry 97 10/03/18 12:11 Last Documented Vital Signs Temperature 97.8 F 10/03/18 12:11 Pulse Rate 53 L 10/03/18 12:11 Respiratory Rate 18 10/03/18 15:03 Blood Pressure 140/73 10/03/18 12:11 Pulse Oximetry 97 10/03/18 12:11 Medical Decision Making [place] Narrative Medical Screen Exam Complete: Yes Emergency Medical Condition: Yes Lab Data Result diagrams: 10/03/18 13:09 10/03/18 13:09 Lab Results 10/03/18 10/03/18 10/03/18 Range/Units 13:09 13:09 13:09 CBC w Diff Auto diff final WBC 12.8 H (4.0-11.0) th/mm3 RBC 5.33 H (4.00-5.30) mil/mm3 Hgb 16.6 H (11.6-15.3) gm/dL Hct 50.6 H (35.0-46.0) % MCV 94.9 (80.0-100.0) fL MCH 31.1 (27.0-34.0) pg MCHC 32.7 (32.0-36.0) % RDW 13.0 (11.6-17.2) % Plt Count 179 (150-450) th/mm3 MPV 9.6 (7.0-11.0) fL Neut % (Auto) 84.0 H (16.0-70.0) % Lymph % (Auto) 10.9 (9.0-44.0) % [place] % (Auto) 4.2 (0.0-8.0) % Eos % (Auto) 0.3 (0.0-4.0) % Baso % (Auto) 0.6 (0.0-2.0) % Neut # (Auto) 10.8 H (1.8-7.7) th/mm3 Lymph # (Auto) 1.4 (1.0-4.8) th/mm3 [place] # (Auto) 0.5 (0.0-0.9) th/mm3 Eos # (Auto) 0.0 (0.0-0.4) th/mm3 Baso # (Auto) 0.1 (0.0-0.2) th/mm3 WBC Differential . Differential Comment . PT 10.2 (9.8-11.6) sec INR 1.0 Ratio APTT 24.0 (23.4-31.7) sec Sodium 139 (136-145) meq/L Potassium 4.0 (3.5-5.1) meq/L Chloride 102 (98-107) meq/L Carbon Dioxide 26.8 (21.0-32.0) meq/L Anion Gap 10 (5-15) meq/L BUN 21 H (7-18) mg/dL Creatinine 1.10 H (0.50-1.00) mg/dL Estimated GFR 47 L (>89) mL/min Random Glucose 108 H (74-106) mg/dL Calcium 9.2 (8.5-10.1) mg/dL Total Bilirubin 0.6 (0.2-1.0) mg/dL AST 30 (15-37) U/L ALT 29 (10-53) U/L Alkaline Phosphatase 137 H (45-117) U/L Total Protein 8.4 H (6.4-8.2) g/dL Albumin 4.1 (3.4-5.0) g/dL Lipase 145 (73-393) U/L Urine Color (Yellw/Straw) Urine Clarity (Clear) Urine pH (5.0-8.5) Ur Specific [place] (1.002-1.035) Urine Protein (Neg-Trace) mg/dL Urine Glucose (UA) (Negative) mg/dL Urine Ketones (Negative) mg/dL Urine Occult Blood (Negative) Urine Nitrate (Negative) Urine Bilirubin (Negative) Urine Urobilinogen (Less than 2) mg/dL Ur Leukocyte Esterase (Negative) Urine RBC (0-3) /hpf Urine WBC (0-5) /hpf Ur Squamous Epith Cells (0-5) /hpf Urine Bacteria (None) /hpf Micro UA Comment Ur Microscopic Review Urine Culture Comments 10/03/18 Range/Units 14:33 CBC w Diff WBC (4.0-11.0) th/mm3 RBC (4.00-5.30) mil/mm3 Hgb (11.6-15.3) gm/dL Hct (35.0-46.0) % MCV (80.0-100.0) fL MCH (27.0-34.0) pg MCHC (32.0-36.0) % RDW (11.6-17.2) % Plt Count (150-450) th/mm3 MPV (7.0-11.0) fL Neut % (Auto) (16.0-70.0) % Lymph % (Auto) (9.0-44.0) % [place] % (Auto) (0.0-8.0) % Eos % (Auto) (0.0-4.0) % Baso % (Auto) (0.0-2.0) % Neut # (Auto) (1.8-7.7) th/mm3 Lymph # (Auto) (1.0-4.8) th/mm3 [place] # (Auto) (0.0-0.9) th/mm3 Eos # (Auto) (0.0-0.4) th/mm3 Baso # (Auto) (0.0-0.2) th/mm3 WBC Differential Differential Comment PT (9.8-11.6) sec INR Ratio APTT (23.4-31.7) sec Sodium (136-145) meq/L Potassium (3.5-5.1) meq/L Chloride (98-107) meq/L Carbon Dioxide (21.0-32.0) meq/L Anion Gap (5-15) meq/L BUN (7-18) mg/dL Creatinine (0.50-1.00) mg/dL Estimated GFR (>89) mL/min Random Glucose (74-106) mg/dL Calcium (8.5-10.1) mg/dL Total Bilirubin (0.2-1.0) mg/dL AST (15-37) U/L ALT (10-53) U/L Alkaline Phosphatase (45-117) U/L Total Protein (6.4-8.2) g/dL Albumin (3.4-5.0) g/dL Lipase (73-393) U/L Urine Color Yellow (Yellw/Straw) Urine Clarity Clear (Clear) Urine pH 5.5 (5.0-8.5) Ur Specific [place] 1.025 (1.002-1.035) Urine Protein Negative (Neg-Trace) mg/dL Urine Glucose (UA) Negative (Negative) mg/dL Urine Ketones Negative (Negative) mg/dL Urine Occult Blood Negative (Negative) Urine Nitrate Positive H (Negative) Urine Bilirubin Negative (Negative) Urine Urobilinogen 1.0 (Less than 2) mg/dL Ur Leukocyte Esterase Negative (Negative) Urine RBC 0-3 (0-3) /hpf Urine WBC 6-8 H (0-5) /hpf Ur Squamous Epith Cells 0-5 (0-5) /hpf Urine Bacteria Many H (None) /hpf Micro UA Comment Cath-culture ind Ur Microscopic Review Microscopic reviewed Urine Culture Comments Cath-cult indicated Imaging Data Radiologist's impression: Abdomen X-Ray 10/03/18 11:47 CONCLUSION: No free air. No plain film evidence for bowel obstruction. Chest X-Ray 10/03/18 11:47 CONCLUSION: Minimal basilar and dependent atelectasis. Tortuous aorta. Mild scoliosis. ECG Data Attestation: I personally reviewed and interpreted this ECG as follows: (EKG sinus, no STEMI) Discharge Plan Discharge Disposition Patient Disposition: ED Admit(ED Internal Use Only) Discharge Condition Condition: Stable Discharge Order Discharge Orders: ED Use Only Admit Order (Routine); Ordered 10/03/18 Ordered By: Rafael Salas Discharge Details Diagnosis: Dehydration, Gastroenteritis, Urinary tract infection Physicians Team ED Provider: Rafael Salas Primary Care Provider: UNKNOWN, Rxs /Orders / Referrals /Forms Prescriptions: No Action clonidine HCl 0.1 mg Tablet 0.1 mg PO BID RF: 0 acetaminophen 325 mg Tablet 650 mg PO Q4H PRN (Reason: Fever Or Pain) RF: 0 donepezil 5 mg Tablet 5 mg PO DAILY@1700 RF: 0 citalopram 10 mg Tablet 10 mg PO DAILY RF: 0 diphenhydramine HCl 25 mg Tablet 25 mg PO HS RF: 0 gabapentin 300 mg Capsule 300 mg PO TID RF: 0 aspirin 81 mg Tablet,Chewable 81 mg PO DAILY RF: 0 montelukast 10 mg Tablet 10 mg PO DAILY RF: 0 hydroxychloroquine 200 mg Tablet 200 mg PO DAILY RF: 0 fluticasone 50 mcg/actuation [place],Suspension 1 spray INTRANASAL DAILY RF: 0 clotrimazole 1 % Cream 1 applic TOPICAL BID RF: 0 Status ED Status: Pending Admission
--- NOTE | 2018-10-03 12:37 | XR ---
EXAM DATE: 10/03/2018 12:26 PM EST AGE/SEX: 88 years / Female INDICATIONS: Diarrhea. Vomiting. CLINICAL DATA: This is the patient's initial encounter. Patient reports that signs and symptoms have been present for 1 day and indicates a pain score of Nonresponsive. MEDICAL/SURGICAL HISTORY: None. None. COMPARISON: No prior exams available for comparison. FINDINGS: Bowel gas pattern unremarkable. No obstruction or free air. Mild ill-defined infiltrate in the lungs, possibly edema. Tortuous aorta. Heart size enlarged. CONCLUSION: No free air. No plain film evidence for bowel obstruction. Electronically signed by: Rafael Mejia MD Board Certified Radiologist 10/03/2018 12:36 PM EST
--- NOTE | 2018-10-03 12:50 | XR ---
EXAM DATE: 10/03/2018 12:26 PM EST AGE/SEX: 88 years / Female INDICATIONS: Congestion. CLINICAL DATA: This is the patient's initial encounter. Patient reports that signs and symptoms have been present for 1 day and indicates a pain score of 0/10. MEDICAL/SURGICAL HISTORY: None. None. COMPARISON: [facility], CHEST SINGLE AP, 09/21/2016. . FINDINGS: No focal consolidation. Minimal basilar atelectasis. Heart size enlarged. Tortuous aorta. CONCLUSION: Minimal basilar and dependent atelectasis. Tortuous aorta. Mild scoliosis. Electronically signed by: Rafael Mejia MD Board Certified Radiologist 10/03/2018 12:49 PM EST
[2018-10-03 13:16] LABS: Baso # (Auto) 0.1 th/mm3 (0.0-0.2); Baso % (Auto) 0.6 % (0.0-2.0); Eos % (Auto) 0.3 % (0.0-4.0); Hematocrit 50.6 % (35.0-46.0); Hemoglobin 16.6 gm/dL (11.6-15.3); Lymph # (Auto) 1.4 th/mm3 (1.0-4.8); Lymph % (Auto) 10.9 % (9.0-44.0); Mean Corpuscular HGB Conc 32.7 % (32.0-36.0); Mean Corpuscular Hemoglobin 31.1 pg (27.0-34.0); Mean Corpuscular Volume 94.9 fL (80.0-100.0); Mean Platelet Volume 9.6 fL (7.0-11.0); Mono # (Auto) 0.5 th/mm3 (0.0-0.9); Mono % (Auto) 4.2 % (0.0-8.0); Neut # (Auto) 10.8 th/mm3 (1.8-7.7); Platelet Count 179 th/mm3 (150-450); Red Blood Count 5.33 mil/mm3 (4.00-5.30); White Blood Count 12.8 th/mm3 (4.0-11.0)
[2018-10-03 13:26] LABS: Chloride 102 meq/L (98-107); Sodium 139 meq/L (136-145)
[2018-10-03 13:29] LABS: Calcium 9.2 mg/dL (8.5-10.1)
[2018-10-03 13:30] LABS: Albumin 4.1 g/dL (3.4-5.0); Anion Gap 10 meq/L (5-15); Blood Urea Nitrogen 21 mg/dL (7-18); Carbon Dioxide 26.8 meq/L (21.0-32.0); Glucose,Random 108 mg/dL (74-106); Lipase 145 U/L (73-393); Prothrombin Time 10.2 sec (9.8-11.6)
[2018-10-03 13:33] LABS: Alanine Aminotransferase 29 U/L (10-53); Glomerular Filtration Rate 47 mL/min (>89)
[2018-10-03 13:34] LABS: Aspartate Aminotransferase 30 U/L (15-37); Total Protein 8.4 g/dL (6.4-8.2)
[2018-10-03 13:35] LABS: Alkaline Phosphatase 137 U/L (45-117)
[2018-10-03 14:45] LABS: Bilirubin,Urine Negative (Negative); Clarity,Urine Clear (Clear); Color,Urine Yellow (Yellw/Straw); Glucose,Urine (UA) Negative (Negative); Leukocyte Esterase,Urine Negative (Negative); Nitrite,Urine Positive (Negative); PH,Urine 5.5 (5.0-8.5); Specific Gravity,Urine 1.025 (1.002-1.035)
[2018-10-03 14:51] LABS: Bacteria,Urine Many /hpf; RBC,Urine 0-3 /hpf (0-3); Squamous Epithelial Cell,Urine 0-5 /hpf (0-5)
[2018-10-03] MEDS ORDERED: Acetaminophen 325 MG Tablet PO PRN (16:15)
[2018-10-03] MEDS ORDERED: Levofloxacin 500 mg Premix Inj 500 MG/100 ML PIGGYBACK IV.SIG ONE (16:17)
[2018-10-03] MEDS: Sod Chloride 0.9% Inj 1,000 ML IV.CONT SCH (16:28)
[2018-10-03] MEDS: Lactobacillus Acidophilus/L. Spores Tablet PO SCH (18:27)
--- NOTE | 2018-10-03 19:04 | P.HPIM ---
History of Present Illness Primary Care Physician: UNKNOWN Chief Complaint: Vomiting and diarrhea History of Present Illness: 88-year-old female with dementia, hypertension, diabetes who cannot answer any questions appropriately was brought in from assisted living facility for vomiting and diarrhea. Patient is rather pleasant female, however she cannot answer any questions appropriately. Information was taken from medical records, nursing staff. Information was very limited in which it was indicated the patient came from a local assisted living facility because of nausea, vomiting, diarrhea. Patient had workup done in emergency department found to have a febrile illness 101.5, leukocytosis, urinary tract infection. Patient was found to have sepsis syndrome. Patient admitted for further evaluation and management. Review of Systems ROS Unobtainable: unobtainable due to mental condition [facility] Medical History Medical History Dementia (Acute) Diabetes (Acute) Hypertension (Acute) Surgical history unknown (Acute) Social History Social History Substance History: No History of Abuse Smoking Status: Unknown if ever smoked How Often Do You Have a Drink Containing Alcohol: Never Recent Travel in [facility] within the Last 8 Weeks: No Recent Out of Country Travel within the Last 8 Weeks: No Immunization History Tetanus Immunization: Unsure Medications and Allergies Allergies Allergy/AdvReac Type Severity Reaction Status Date / Time penicillin G Allergy Mild unknown Unverified 10/03/18 12:16 MOLD CULTURES Allergy Mild unknown Uncoded 10/03/18 12:16 Home Medications Medication Instructions Recorded Confirmed Type acetaminophen 650 mg PO Q4H PRN 10/03/18 10/03/18 History aspirin 81 mg PO DAILY 10/03/18 10/03/18 History citalopram 10 mg PO DAILY 10/03/18 10/03/18 History clonidine HCl 0.1 mg PO BID 10/03/18 10/03/18 History clotrimazole 1 applic TOPICAL BID 10/03/18 10/03/18 History diphenhydramine HCl 25 mg PO HS 10/03/18 10/03/18 History donepezil 5 mg PO DAILY@1700 10/03/18 10/03/18 History fluticasone 1 spray INTRANASAL DAILY 10/03/18 10/03/18 History gabapentin 300 mg PO TID 10/03/18 10/03/18 History hydroxychloroquine 200 mg PO DAILY 10/03/18 10/03/18 History montelukast 10 mg PO DAILY 10/03/18 10/03/18 History Active Medications: Active Medications Acetaminophen (Tylenol) 650 mg PO Q4H PRN PRN Reason: Temp > 100.4 Last Admin: 10/03/18 18:27 Dose: 650 mg Sodium Chloride (Ns Inj) 1,000 mls @ 100 mls/hr IV.CONT .Q10H [facility] Last Infusion: 10/03/18 18:09 Dose: 100 mls/hr Ceftriaxone Sodium 1,000 mg/ (Sodium Chloride) 100 mls @ 200 mls/hr IV.SIG Q24H [facility] Last Admin: 10/03/18 18:27 Dose: 200 mls/hr Lactobacillus Acidophilus (Lactinex) 1 tab PO TID [facility] Last Admin: 10/03/18 18:27 Dose: 1 tab Ondansetron HCl (Zofran Inj) 4 mg IV.PUSH Q6H PRN PRN Reason: NAUSEA OR VOMITING Sodium Chloride (Ns Flush) 2 ml IV.FLUSH PRN PRN PRN Reason: FLUSH AFTER USING IV ACCESS Sodium Chloride (Ns Flush) 2 ml IV.FLUSH BID [place] Sodium Chloride (Ns Flush) 2 ml IV.FLUSH PRN PRN PRN Reason: FLUSH AFTER USING IV ACCESS Physical Exam Vital signs: Vital Signs 10/03/18 12:11 10/03/18 15:03 10/03/18 16:23 Temperature 97.8 F Pulse Rate 53 L 79 Respiratory Rate 18 18 18 Blood Pressure 140/73 123/57 L Pulse Oximetry 97 91 L 10/03/18 18:07 10/03/18 18:34 Temperature 101.5 F H Pulse Rate 82 74 Respiratory Rate 18 22 Blood Pressure 114/52 L 130/76 Pulse Oximetry 94 L 94 L Intake & Output 10/02/18 10/03/18 10/03/18 18:59 06:59 18:59 Intake Total 1195 / 1195 Balance 1195 / 1195 Intake: IV 1195 / 1195 NS Inj 1,000 ML @ 100 mls/hr IV 95 / 95 .CONT .Q10H [facility] Rx#:[id number] Levaquin 500 mg Premix Inj 500 100 / 100 mg In 100 ml @ 100 mls/hr IV. SIG ONCE ONE Rx#:[id number] Narrative: GENERAL: Well-developed, well-nourished, in no acute distress. alert however she is only orientated to self HEENT: Head is normocephalic without any lesions or masses noted. Facial features are symmetric. Eyes: Pupils equal round reactive to light. Extraocular muscles are intact. Conjunctivae were clear. Oropharyngeal: Pharynx without any erythema edema. Tongue is midline without deviation. Buccal mucosa is moist without any masses or lesions NECK: Supple without any masses. Trachea midline no deviation. No JVD, no bruits are appreciated CARDIAC: Regular rhythm, regular rate. S1/S2 are heard. 2/6 ejection murmur, no gallops or rubs. LUNGS: Clear to auscultation bilaterally. No wheeze, rhonchi or rales. No use of accessory muscles on inspiration or expiration. ABDOMEN: Soft, nontender. Nondistended. Bowel sounds heard in all 4 quadrants. No organomegaly or masses. Negative rebound, negative guarding EXTREMITIES: No edema, pulses are equal bilaterally. No cyanosis or clubbing NEUROLOGY: Mood and affect appear appropriate. Cranial nerves II through XII grossly intact. Muscle strength 5/5 in upper and lower extremities bilaterally. Deep tendon reflexes are 2+ in upper and lower extremities bilaterally. Results Labs CBC & Chem 7: 10/03/18 13:09 10/03/18 13:09 Imaging Impressions Abdomen X-Ray 10/03/18 11:47 CONCLUSION: No free air. No plain film evidence for bowel obstruction. Chest X-Ray 10/03/18 11:47 CONCLUSION: Minimal basilar and dependent atelectasis. Tortuous aorta. Mild scoliosis. Caprini VTE Risk Assessment Caprini VTE Risk Assessment: Moderate/High Risk (score >= 2) Caprini Risk Assessment Model: Point Value = 1 Point Value = 2 Point Value = 3 Point Value = 5 Age 41-60 Minor surgery BMI > 25 kg/m2 Swollen legs Varicose veins or History of unexplained or recurrent spontaneous Oral contraceptives or hormone replacement Sepsis (< 1 month) Serious lung disease, including pneumonia (< 1 month) Abnormal pulmonary function Acute myocardial infarction Congestive heart failure (< 1 month) History of inflammatory bowel disease Medical patient at bed rest Age 61-74 Arthroscopic surgery Major open surgery (> 45 min) Laparoscopic surgery (> 45 min) Malignancy Confined to bed (> 72 hours) Immobilizing plaster cast Central venous access Age >= 75 History of VTE Family history of VTE Factor V Leiden Prothrombin [id number] Lupus anticoagulant Anticardiolipin antibodies Elevated serum homocysteine Heparin-induced thrombocytopenia Other congenital or acquired thrombophilia Stroke (< 1 month) Elective arthroplasty Hip, pelvis, or leg fracture Acute spinal cord injury (< 1 month) Prophylaxis Regimen: Total Risk Factor Score Risk Level Prophylaxis Regimen 0-1 Low Early ambulation 2 Moderate Order ONE of the following: *Sequential Compression Device (SCD) *Heparin 5000 units SQ BID 3-4 Higher Order ONE of the following medications: *Heparin 5000 units SQ TID *Enoxaparin/Lovenox 40 mg SQ daily (WT < 150 kg, CrCl > 30 mL/min) *Enoxaparin/Lovenox 30 mg SQ daily (WT < 150 kg, CrCl > 10-29 mL/min) *Enoxaparin/Lovenox 30 mg SQ BID (WT < 150 kg, CrCl > 30 mL/min) AND/OR *Sequential Compression Device (SCD) 5 or more Highest Order ONE of the following medications: *Heparin 5000 units SQ TID (Preferred with Epidurals) *Enoxaparin/Lovenox 40 mg SQ daily (WT < 150 kg, CrCl > 30 mL/min) *Enoxaparin/Lovenox 30 mg SQ daily (WT < 150 kg, CrCl > 10-29 mL/min) *Enoxaparin/Lovenox 30 mg SQ BID (WT < 150 kg, CrCl > 30 mL/min) AND *Sequential Compression Device (SCD) Assessment and Plan Plan Sepsis Patient meets criteria with febrile illness, leukocytosis, urinary tract infection Patient started on empirical antibiotic of Rocephin Continue follow urine culture for appropriate antibiotics Obtain further septic workup with blood cultures, influenza testing, C. difficile culture, enteric pathogen culture, stool for WBCs, rotavirus Nausea, vomiting, diarrhea Possible gastroenteritis Continue IV fluids Antiemetic as needed Diabetes Accu-Cheks with sliding scale insulin Hypertension As needed Vasotec Dementia Continue home medications DVT prevention Sequential compression devices Discussed Condition With: Patient, nursing staff, Dr. Currie
[2018-10-03] MEDS ORDERED: Dextrose 50% in Water 50 ML Vial IV.PUSH PRN (19:05)
[2018-10-03] MEDS: Insulin NovoLOG Aspart Correctional Sugar Inj SQ SCH (21:59)
[2018-10-04] MEDS: Sod Chloride 0.9% Inj 1,000 ML IV.CONT SCH ×2 (03:21→15:46)
[2018-10-04 06:27] LABS: Baso % (Auto) 0.1 % (0.0-2.0); Chloride 109 meq/L (98-107); Eos % (Auto) 0.1 % (0.0-4.0); Hematocrit 34.3 % (35.0-46.0); Hemoglobin 11.9 gm/dL (11.6-15.3); Lymph # (Auto) 1.2 th/mm3 (1.0-4.8); Lymph % (Auto) 8.6 % (9.0-44.0); Mean Corpuscular HGB Conc 34.8 % (32.0-36.0); Mean Corpuscular Hemoglobin 33.2 pg (27.0-34.0); Mean Corpuscular Volume 95.5 fL (80.0-100.0); Mean Platelet Volume 9.6 fL (7.0-11.0); Mono # (Auto) 0.8 th/mm3 (0.0-0.9); Mono % (Auto) 5.4 % (0.0-8.0); Neut # (Auto) 11.9 th/mm3 (1.8-7.7); Neut % (Auto) 85.8 % (16.0-70.0); Platelet Count 139 th/mm3 (150-450); Potassium 3.9 meq/L (3.5-5.1); Red Blood Count 3.59 mil/mm3 (4.00-5.30); Red Cell Distribution Width 13.1 % (11.6-17.2); Sodium 143 meq/L (136-145); White Blood Count 13.9 th/mm3 (4.0-11.0)
[2018-10-04 07:15] LABS: Alanine Aminotransferase 17 U/L (10-53); Albumin 2.5 g/dL (3.4-5.0); Alkaline Phosphatase 76 U/L (45-117); Anion Gap 7 meq/L (5-15); Aspartate Aminotransferase 24 U/L (15-37); Blood Urea Nitrogen 23 mg/dL (7-18); Calcium 7.6 mg/dL (8.5-10.1); Carbon Dioxide 27.4 meq/L (21.0-32.0); Glomerular Filtration Rate 56 mL/min (>89); Glucose,Random 86 mg/dL (74-106); Total Protein 5.2 g/dL (6.4-8.2)
--- NOTE | 2018-10-04 08:22 | P.PNIM ---
Subjective Interval history: 88-year-old female who is seen examined today for follow-up on nausea, vomiting, diarrhea. Patient with dementia. She believes that she is in [place] she denies any recurrent nausea, vomiting, diarrhea. Awaiting workup to be complete. Vital signs are stable. Patient remains afebrile Physical Exam Vital signs: Vital Signs 10/03/18 12:11 10/03/18 15:03 10/03/18 16:23 Temperature 97.8 F Pulse Rate 53 L 79 Respiratory Rate 18 18 18 Blood Pressure 140/73 123/57 L Pulse Oximetry 97 91 L 10/03/18 18:07 10/03/18 18:34 10/03/18 20:00 Temperature 101.5 F H 97.7 F Pulse Rate 82 74 64 Respiratory Rate 18 22 18 Blood Pressure 114/52 L 130/76 137/65 Pulse Oximetry 94 L 94 L 96 10/04/18 00:00 Temperature 98.4 F Pulse Rate 60 Respiratory Rate 16 Blood Pressure 100/51 L Pulse Oximetry 96 Intake & Output 10/03/18 10/04/18 10/04/18 18:59 06:59 18:59 Intake Total 1195 / 1195 1100 / 1100 Output Total 200 / 200 Balance 1195 / 1195 900 / 900 Weight 60.4 kg Intake: IV 1195 / 1195 1100 / 1100 NS Inj 1,000 ML @ 100 mls/hr IV 95 / 95 1000 / 1000 .CONT .Q10H [facility] Rx#:[id number] Levaquin 500 mg Premix Inj 500 100 / 100 mg In 100 ml @ 100 mls/hr IV. SIG ONCE ONE Rx#:[id number] Rocephin Inj 1,000 MG In NS Inj 100 / 100 100 ML @ 200 mls/hr IV.SIG Q24H [facility] Rx#:[id number] Output: Urine 200 / 200 Other: Weight On Admission 60.6 kg Narrative: GENERAL: Well-developed, well-nourished, in no acute distress. alert and orientated to self only. She believes that she is in [place] HEENT: Head is normocephalic without any lesions or masses noted. Facial features are symmetric. Eyes: Extraocular muscles are intact. Conjunctivae were clear. NECK: Supple without any masses. Trachea midline no deviation. No JVD CARDIAC: Regular rhythm, regular rate. S1/S2 are heard. 2/6 ejection murmur, no gallops or rubs. LUNGS: Clear to auscultation bilaterally. No wheeze, rhonchi or rales. No use of accessory muscles on inspiration or expiration. ABDOMEN: Soft, nontender. Nondistended. Bowel sounds heard in all 4 quadrants. No organomegaly or masses. Negative rebound, negative guarding EXTREMITIES: No edema, pulses are equal bilaterally. No cyanosis or clubbing NEUROLOGY: Mood and affect appear appropriate for demented patient. Cranial nerves II through XII grossly intact. Moving all extremities, speech is clear Results Labs CBC & Chem 7: 10/04/18 05:10 10/04/18 05:10 Labs: Microbiology 10/04/18 00:30 Nasal Wash Influenza Types A,B Antigen - Final Negative for FLU A and B antigen Infection due to influenza A or B cannot be ruled out since the antigen present in the sample may be below the detection limit of the test. 10/03/18 13:45 Stool Stool Occult Blood (CRUZ) - Final Hemoccult negative Imaging Imaging: Impressions Abdomen X-Ray 10/03/18 11:47 CONCLUSION: No free air. No plain film evidence for bowel obstruction. Chest X-Ray 10/03/18 11:47 CONCLUSION: Minimal basilar and dependent atelectasis. Tortuous aorta. Mild scoliosis. Assessment and Plan Plan Sepsis, resolved Patient meets criteria with febrile illness, leukocytosis, urinary tract infection Patient started on empirical antibiotic of Rocephin Continue follow urine culture for appropriate antibiotics Influenza testing was negative, C. difficile culture is negative Blood cultures are pending Awaiting enteric pathogen, stool for WBCs, rotavirus testing Nausea, vomiting, diarrhea Possible gastroenteritis Continue IV fluids Antiemetic as needed Azotemia, mild dehydration Continue IV fluids Renal functions are improving Diabetes Accu-Cheks with sliding scale insulin Hypertension As needed Vasotec Dementia Continue home medications DVT prevention Sequential compression devices Discussed Condition With: Patient, nursing staff, Dr. Currie Discharge Planning: Anticipate discharge back to [facility] once clinically stable. Progress Note: Quality VTE Deep Vein Thrombosis/Pulmonary Embolism Present on Admission: No
[2018-10-04] MEDS: Insulin NovoLOG Aspart Correctional Sugar Inj SQ SCH ×4 (09:19→20:05)
[2018-10-04] MEDS: Gabapentin 300 MG Capsule PO SCH ×3 (09:20→18:11)
[2018-10-04] MEDS: Lactobacillus Acidophilus/L. Spores Tablet PO SCH ×3 (09:20→18:11)
[2018-10-04] MEDS: Citalopram 20 MG Tablet PO SCH (09:20)
--- NOTE | 2018-10-04 16:29 | ECG ---
Date Performed: 10/03/2018 Time Performed: 12:11:29 PTAGE: 88 years EKG: SINUS BRADYCARDIA WITH FIRST DEGREE AV BLOCK PATTERN CONSISTENT WITH PULMONARY DISEASE LEFT ANTERIOR FASCICULAR BLOCK LEFT VENTRICULAR HYPERTROPHY AND ST-T CHANGE ABNORMAL ECG Compared to PREVIOUS TRACING , LVH is new. Also, possible atrial pacer spikes are noted. Clinical cor relation recommended. PREVIOUS TRACIN08/03/2010 19.25 DOCTOR: Kel Low Interpretating Date/Time 10/04/2018 16:28:52
[2018-10-05] MEDS: Sod Chloride 0.9% Inj 1,000 ML IV.CONT SCH ×2 (05:18→09:51)
[2018-10-05 06:28] LABS: Baso % (Auto) 0.4 % (0.0-2.0); Eos % (Auto) 0.4 % (0.0-4.0); Hematocrit 36.3 % (35.0-46.0); Lymph # (Auto) 1.2 th/mm3 (1.0-4.8); Lymph % (Auto) 16.4 % (9.0-44.0); Mean Corpuscular HGB Conc 33.2 % (32.0-36.0); Mean Corpuscular Hemoglobin 31.9 pg (27.0-34.0); Mean Corpuscular Volume 96.2 fL (80.0-100.0); Mean Platelet Volume 10.3 fL (7.0-11.0); Mono # (Auto) 0.4 th/mm3 (0.0-0.9); Mono % (Auto) 5.7 % (0.0-8.0); Neut # (Auto) 5.9 th/mm3 (1.8-7.7); Neut % (Auto) 77.1 % (16.0-70.0); Platelet Count 144 th/mm3 (150-450); Red Blood Count 3.77 mil/mm3 (4.00-5.30); Red Cell Distribution Width 13.1 % (11.6-17.2); White Blood Count 7.5 th/mm3 (4.0-11.0)
[2018-10-05 06:33] LABS: Potassium 3.5 meq/L (3.5-5.1)
[2018-10-05 06:37] LABS: Calcium 7.9 mg/dL (8.5-10.1)
[2018-10-05 08:47] VITALS: RESP 21; O2SAT 96
--- NOTE | 2018-10-05 08:55 | P.PNIM ---
Subjective Interval history: Follow-up nausea vomiting diarrhea. Patient seen and examined , pleasantly confused. She denies any acute complaints. Denies any chest pain. Diarrhea has slowed up. Denies any nausea or vomiting. Spoke to bedside RN no acute events. She is eating minimal p.o. intake, will encourage. UTI showing E. coli. Antibiotics changed. Vital signs stable. Afebrile. Blood pressure is elevated this morning, will DC IV fluids. Given Vasotec. Continue to monitor. Possible discharge back to [facility] today if blood pressure more controlled and tolerating p.o. intake. Physical Exam Vital signs: Vital Signs 10/04/18 12:00 10/04/18 16:00 10/04/18 20:00 Temperature 98 F 99 F 99.6 F Pulse Rate 56 L 56 L 72 Respiratory Rate 20 20 18 Blood Pressure 133/62 144/64 H 196/85 H Pulse Oximetry 93 L 91 L 95 10/05/18 00:00 10/05/18 04:00 10/05/18 08:00 Temperature 99.8 F H 98.4 F 98.7 F Pulse Rate 63 60 80 Respiratory Rate 18 18 21 Blood Pressure 145/77 H 131/91 H 215/95 H Pulse Oximetry 96 97 96 Intake & Output 10/04/18 10/05/18 10/05/18 18:59 06:59 18:59 Intake Total 1240 / 1240 1150 / 1150 50 / 50 Output Total 100 / 100 250 / 250 Balance 1140 / 1140 900 / 900 50 / 50 Weight 63.7 kg Intake: IV 1000 / 1000 1100 / 1100 NS Inj 1,000 ML @ 100 mls/hr IV 1000 / 1000 1000 / 1000 .CONT .Q10H [facility] Rx#:[id number] Rocephin Inj 1,000 MG In NS Inj 100 / 100 100 ML @ 200 mls/hr IV.SIG Q24H [facility] Rx#:[id number] Oral 240 / 240 50 / 50 50 / 50 Output: Urine 100 / 100 250 / 250 Other: # Urine Diapers 1 Narrative: GENERAL: Well-developed, well-nourished, in no acute distress. alert and orientated to self only. Confused to place and time. HEENT: Head is normocephalic without any lesions or masses noted. Facial features are symmetric. Eyes: Extraocular muscles are intact. Conjunctivae were clear. NECK: Supple without any masses. Trachea midline no deviation. No JVD CARDIAC: Regular rhythm, regular rate. S1/S2 are heard. 2/6 ejection murmur, no gallops or rubs. LUNGS: Clear to auscultation bilaterally. No wheeze, rhonchi or rales. No use of accessory muscles on inspiration or expiration. ABDOMEN: Soft, nontender. Nondistended. Bowel sounds heard in all 4 quadrants. No organomegaly or masses. Negative rebound, negative guarding EXTREMITIES: No edema, pulses are equal bilaterally. No cyanosis or clubbing NEUROLOGY: Mood and affect appear appropriate for demented patient. Cranial nerves II through XII grossly intact. Moving all extremities, speech is clear Results Labs CBC & Chem 7: 10/05/18 05:25 10/05/18 05:25 Labs: Microbiology 10/03/18 14:33 Catheterized Urine Urine Culture - Final Escherichia coli 10/03/18 19:45 Blood - Peripheral Aerobic Blood Culture - Preliminary No growth in 1 day 10/03/18 19:45 Blood - Peripheral Anaerobic Blood Culture - Preliminary No growth in 1 day 10/03/18 14:45 Stool - Final Negative - Rotavirus antigen is absent or below the level of detection Assessment and Plan Plan Sepsis, resolved Patient met criteria with febrile illness, leukocytosis, urinary tract infection Patient started on empirical antibiotic of Rocephin Continue follow urine culture for appropriate antibiotics Influenza testing was negative, C. difficile culture is negative Blood cultures negative to date. Continue to follow. Stool cultures are negative. Nausea, vomiting, diarrhea. Resolved. Possible gastroenteritis Continue IV fluids, patient tolerating p.o. intake, will dc. Antiemetic as needed Azotemia, mild dehydration Continue IV fluids Renal functions are improving Diabetes Accu-Cheks with sliding scale insulin Hypertension As needed Vasotec -Elevated this morning suspect secondary to IV fluid. Will discontinue IV fluid. Monitor trends. Dementia Continue home medications DVT prevention Sequential compression devices Discussed Condition With: Patient, nursing staff, Dr. Lua Discharge Planning: Anticipate discharge back to [facility] once clinically stable. Blood pressure is elevated, but this is more controlled and patient tolerates p.o. intake will discharge. Progress Note: Quality VTE Deep Vein Thrombosis/Pulmonary Embolism Present on Admission: No
[2018-10-05] MEDS: Insulin NovoLOG Aspart Correctional Sugar Inj SQ SCH ×3 (09:15→16:47)
[2018-10-05] MEDS: Gabapentin 300 MG Capsule PO SCH ×4 (09:41→17:14)
[2018-10-05] MEDS: Citalopram 20 MG Tablet PO SCH (09:42)
[2018-10-05] MEDS: Lactobacillus Acidophilus/L. Spores Tablet PO SCH ×4 (09:42→17:14)
--- NOTE | 2018-10-05 14:44 | P.DS ---
DS: Providers Date of admission: 10/04/18 12:04 Primary care physician: UNKNOWN Brief History from admission: 88-year-old female with dementia, hypertension, diabetes who cannot answer any questions appropriately was brought in from assisted living facility for vomiting and diarrhea. Patient is rather pleasant female, however she cannot answer any questions appropriately. Information was taken from medical records, nursing staff. Information was very limited in which it was indicated the patient came from a local assisted living facility because of nausea, vomiting, diarrhea. Patient had workup done in emergency department found to have a febrile illness 101.5, leukocytosis, urinary tract infection. Patient was found to have sepsis syndrome. Patient admitted for further evaluation and management. DS: Summary This is an 88-year-old female who presented with sepsis patient met criteria with febrile illness, leukocytosis, urinary tract infection. -year-old Patient started on empirical antibiotic of Rocephin. Continue follow urine culture for appropriate antibiotics Influenza testing was negative, C. difficile culture is negative. Blood cultures negative to date. Stool cultures are negative. Patient also presented with nausea, vomiting, diarrhea. All have resolved. Was given IV fluids and antiemetics as needed. Patient also presented with azotemia with mild dehydration, renal function improved with IV fluids. Patient also history of diabetes and hypertension. On day of discharge patient had problems with her blood pressure, was given clonidine as needed and Vasotec, IV fluids were discontinued and her blood pressure improved. It was noted that patient does take clonidine at home for which this has been restarted upon day of discharge. Patient has a history of dementia is stable and will be discharged back to [facility]. Vital signs are stable on day of discharge. Afebrile. Follow-up PCP. Rx is written. Diet as tolerated. Activity as tolerated. Time Spent with Patient Total time spent providing and/or coordinating discharge services: Greater than 30 minutes Quality: VTE Deep Vein Thrombosis/Pulmonary Embolism Present on Admission: No Exam Narrative Exam Narrative: Narrative: GENERAL: Well-developed, well-nourished, in no acute distress. alert and orientated to self only. Confused to place and time. HEENT: Head is normocephalic without any lesions or masses noted. Facial features are symmetric. Eyes: Extraocular muscles are intact. Conjunctivae were clear. NECK: Supple without any masses. Trachea midline no deviation. No JVD CARDIAC: Regular rhythm, regular rate. S1/S2 are heard. 2/6 ejection murmur, no gallops or rubs. LUNGS: Clear to auscultation bilaterally. No wheeze, rhonchi or rales. No use of accessory muscles on inspiration or expiration. ABDOMEN: Soft, nontender. Nondistended. Bowel sounds heard in all 4 quadrants. No organomegaly or masses. Negative rebound, negative guarding EXTREMITIES: No edema, pulses are equal bilaterally. No cyanosis or clubbing NEUROLOGY: Mood and affect appear appropriate for demented patient. Cranial nerves II through XII grossly intact. Moving all extremities, speech is clear Results Labs on day of discharge: Labs from last 24 hours 10/05/18 10/05/18 10/05/18 11:23 07:25 05:25 CBC w Diff WBC RBC Hgb Hct MCV MCH MCHC RDW Plt Count MPV Neut % (Auto) Lymph % (Auto) [place] % (Auto) Eos % (Auto) Baso % (Auto) Neut # (Auto) Lymph # (Auto) [place] # (Auto) Eos # (Auto) Baso # (Auto) WBC Differential Differential Comment Sodium 142 Potassium 3.5 Chloride 110 H Carbon Dioxide 22.0 Anion Gap 10 BUN 23 H Creatinine 0.82 Estimated GFR 66 L POC Glucose 103 76 Random Glucose 70 L Calcium 7.9 L 10/05/18 10/04/18 10/04/18 05:25 19:53 16:47 CBC w Diff Auto diff final WBC 7.5 RBC 3.77 L Hgb 12.0 Hct 36.3 MCV 96.2 MCH 31.9 MCHC 33.2 RDW 13.1 Plt Count 144 L MPV 10.3 Neut % (Auto) 77.1 H Lymph % (Auto) 16.4 [place] % (Auto) 5.7 Eos % (Auto) 0.4 Baso % (Auto) 0.4 Neut # (Auto) 5.9 Lymph # (Auto) 1.2 [place] # (Auto) 0.4 Eos # (Auto) 0.0 Baso # (Auto) 0.0 WBC Differential . Differential Comment . Sodium Potassium Chloride Carbon Dioxide Anion Gap BUN Creatinine Estimated GFR POC Glucose 85 97 Random Glucose Calcium Preliminary micro results at discharge 10/03/18 19:45 Aerobic Blood Culture - Preliminary Blood - Peripheral No growth in 2 days Anaerobic Blood Culture - Preliminary No growth in 2 days Impressions ITS Impressions Abdomen X-Ray 10/03/18 11:47 CONCLUSION: No free air. No plain film evidence for bowel obstruction. Chest X-Ray 10/03/18 11:47 CONCLUSION: Minimal basilar and dependent atelectasis. Tortuous aorta. Mild scoliosis. Discharge Plan Discharge Disposition Patient Disposition: [facility] Discharge Condition Condition: Stable Discharge Order Discharge Orders: Discharge Order (Routine); Ordered 10/05/18 Ordered By: Johanne Vail Discharge Details Anticipated Discharge Date: 10/05/18 Discharge Comment: dc back to [facility] when cm arrangements made Physicians Team ED Provider: Rafael Salas Primary Care Provider: UNKNOWN, Attending Provider: Yariel Lua Rxs /Orders / Referrals /Forms Prescriptions: New cefuroxime axetil 250 mg Tablet 250 mg PO Q12HR Qty: 14 RF: 0 acidophilus-sporogenes [Acidophilus Ex Str (L. sporog)] 35 million- 25 million cell Tablet 1 tab PO TID Qty: 21 RF: 0 Continue clonidine HCl 0.1 mg Tablet 0.1 mg PO BID RF: 0 acetaminophen 325 mg Tablet 650 mg PO Q4H PRN (Reason: Fever Or Pain) RF: 0 donepezil 5 mg Tablet 5 mg PO DAILY@1700 RF: 0 citalopram 10 mg Tablet 10 mg PO DAILY RF: 0 diphenhydramine HCl 25 mg Tablet 25 mg PO HS RF: 0 gabapentin 300 mg Capsule 300 mg PO TID RF: 0 aspirin 81 mg Tablet,Chewable 81 mg PO DAILY RF: 0 montelukast 10 mg Tablet 10 mg PO DAILY RF: 0 hydroxychloroquine 200 mg Tablet 200 mg PO DAILY RF: 0 fluticasone 50 mcg/actuation [place],Suspension 1 spray INTRANASAL DAILY RF: 0 clotrimazole 1 % Cream 1 applic TOPICAL BID RF: 0 Referrals: UNKNOWN, [Primary Care Provider] - 10/12/18 12:00 am Status ED Status: Left Department
[2018-10-05 15:55] VITALS: BP 155/73; PULSE 51; TEMP 98.4
== END 2018-10-05 18:01 | DRG 872 ==
LOC: PHED 11:34 → PHEDA 11:34 → PH3 18:15
PROVIDERS: ADMIT Hospitalist; ATTEND Hospitalist
CPT/HCPCS: 71010; 71045; 74000; 74018; 80048; 80053; 81001; 82272; 82948; 82962; 83690; 85025; 85610; 85730; 87040; 87077; 87086; 87186; 87275; 87276; 87425; 87493; 87804; 90761; 90775; 93005; 96361; 96365; 96375; 99285; G0378; J0696; J1956; J2405; J7030